=== PATIENT | female | born 1965 | race Caucasian/White ===

== ENCOUNTER 2017-09-12 03:58 | Observation (INO) | payer MEDICARE ==
[2017-09-12] MEDS ORDERED: diphenhydrAMINE 50 MG/ML VIAL ONE (04:28)
[2017-09-12] MEDS ORDERED: Ondansetron HCl/PF 4 MG/2 ML Vial ONE (04:28)
[2017-09-12 04:38] LABS: #Eosinphils 0.1 thou/uL (0.0-0.7); #Lymphocytes 2.2 thou/uL (1.20-3.40); #Monocytes 0.7 thou/uL (0.11-0.59); #Neutrophils 7.6 thou/uL (1.40-6.50); %Basophils 0.2 % (0.0-1.0); %Eosinophils 0.6 % (0.0-10.0); %Monocytes 6.3 % (0.0-10.0); Hematocrit 42.5 % (36.0-47.0); Red Blood Cell (RBC) Count 4.93 mill/uL (4.20-5.40); White Blood Cell (WBC) Count 10.6 thou/uL (4.8-10.8)
[2017-09-12 04:59] LABS: Bilirubin Negative (Negative); Blood, Urine Trace (Negative); Glucose, Urine (Dipstick) Negative (Negative); Ketone, Urine 15 mg/dL (Negative); Nitrite Negative (Negative); Protein, Urine (Dipstick) 100 mg/dL (Neg-Trace); Urobilinogen 0.2 mg/dL (0.2-1.0)
[2017-09-12 05:00] LABS: Bacteria/HPF Rare-Few HPF (None Seen); Hyaline Casts/LPF 0-3 HYALINE CAST LPF (0-3 Hyaline); WBC/HPF 0-3 HPF (0-3)
[2017-09-12 05:01] LABS: ALT (SGPT) 12 U/L (8-55); AST (SGOT) 13 U/L (5-34); Alkaline Phosphatase 139 U/L (40-150); Anion Gap 17 mmol/L (10-20); BUN (Urea Nitrogen) 6 mg/dL (9.8-20.1); Bilirubin, Total 0.4 mg/dL (0.2-1.2); Calc. Creatinine Clearance 0 mL/min (70-130); Calcium 10.2 mg/dL (7.8-10.44); Carbon Dioxide 25 mmol/L (22-29); Chloride 99 mmol/L (98-107); Estimated GFR-MDRD Greater than 90; Globulin 3.6 g/dL (2.4-3.5); Protein, Total 7.8 g/dL (6.0-8.3)
[2017-09-12 05:03] LABS: Troponin I Less than 0.010 ng/mL (< 0.028)
[2017-09-12 05:20] LABS: Amphetamine Not Detected (NotDetected); Methadone Not Detected (NotDetected); Methamphetamine Not Detected (NotDetected)
[2017-09-12] MEDS ORDERED: Lorazepam 1 MG TAB ONE (06:29)
[2017-09-12] MEDS ORDERED: Acetaminophen 325 MG TAB PO PRN (07:42)
[2017-09-12] MEDS ORDERED: Dextrose 5% in Water 1,000 ML IV PRN (07:52)
[2017-09-12] MEDS ORDERED: HumaLOG 300 UNITS/3 ML VIAL SC PRN (07:52)
[2017-09-12] MEDS ORDERED: Dextrose 50% Abboject 50 ML SYRINGE SLOW IVP PRN (07:52)
--- NOTE | 2017-09-12 07:56 | CT ---
PRELIMINARY REPORT/[facility]/EMERGENCY AFTER HOURS PROCEDURE: EXAM: CT Head Without Intravenous Contrast CLINICAL HISTORY: 52 years old, female; Signs and symptoms; Altered mental status/memory loss; Confusion or disorientat ion; Patient HX: AMS TECHNIQUE: Axial computed tomography images of the head/brain without intravenous contrast. COMPARISON: No relevant prior studies available. FINDINGS: No definite acute skull fracture. Included paranasal sinuses are essentially clear. No acute intracranial hemorrhage or mass effect. Ventricle size is normal for age. No definite acute infarct by CT. MRI could be more sensitive/specific for an acute infarct if clinically indicated. IMPRESSION: No acute intracranial bleed or mass effect. No definite acute infarct by CT, see above. Thank you for allowing us to participate in the care of your patient. Dictated and Authenticated by: Anson Chua MD 09/12/2017 6:20 AM Central Time ([place] & [place]) FINAL REPORT HEAD CT WITHOUT CONTRAST: DATE: 11/12/16. COMPARISON: 03/03/15. HISTORY: Confusion, disorientation, altered mental status, and memory loss. FINDINGS: I agree with the preliminary [facility] report. No intracranial hemorrhage, midline shift, or mass effect . No ventricular enlargement. Imaged paranasal sinuses/mastoid air cells are well aerated. No displaced calvarial fracture. No in tracranial hemorrhage, midline shift, or mass effect. IMPRESSION: Unremarkable head CT. POS: [facility]
--- NOTE | 2017-09-12 08:04 | RAD ---
PORTABLE CHEST: DATE: 09/12/17. TIME: 2:48 a.m. HISTORY: Cough. FINDINGS: Comparison is made with the exam of 11/22/15. The heart size is normal. The lungs are expanded without focal areas of consolidation, pneumothorax , or pleural effusion. IMPRESSION: No radiographic evidence of acute cardiopulmonary process. POS: [facility]
[2017-09-12] MEDS: Ondansetron ODT 4 MG TAB PO PRN ×3 (09:53→23:47)
[2017-09-12 10:02] VITALS: BMI 24.9
--- NOTE | 2017-09-12 10:22 | HP ---
PRIMARY CARE PROVIDER: Dr. Carmen Huerta, psychiatrist at [facility]. HISTORY OF PRESENT ILLNESS: The patient states she has been sick a year. She has had nausea and vom iting for months. She states she has had trouble with her thinking. She states she thinks she has l ost 30 pounds in 3 months or less. She denies blood in her stools, blood in her emesis, or abdominal pain. PAST MEDICAL HISTORY: Bipolar syndrome for 20-30 years; diabetes mellitus, type 2; hypertension; dys lipidemia; history of breast cancer post resection. PAST SURGICAL HISTORY: She states she has had a hysterectomy, lumpectomy from her breast. CURRENT MEDICATIONS: Listed for her, which she is unable to confirm all of them. Hydroxyzine 50 mg 4 times a day, clindamycin 300 mg 3 times a day, trazodone 100 mg a day, oxcarbazepine 300 mg twice a day, gabapentin 600 mg 3 times a day, Paxil 60 mg a day, benztropine 1 mg twice a day, Latuda 60 mg a day, Protonix 40 mg, metoprolol 25 mg once a day, lisinopril 10 mg a day, Plavix 75 mg a day, metfo rmin 1000 mg twice a day, Ativan 1 mg q.8 hours p.r.n. ALLERGIES: SULFA. FAMILY HISTORY: Mother is alive with COPD. Father of cancer. She does not know what kind. SOCIAL HISTORY: , smokes 1 pack a day, drinks no alcohol, states she gets mad if people ask i f she has taken meth. REVIEW OF SYSTEMS: CONSTITUTIONAL: She states she occasionally has chills and sweats, occasionally she feels unstable. Eyes: She has blurred vision at times. No double vision or flashing lights. E ars, nose, and throat: She has no ear pain or drainage, nasal bleeding, or trouble swallowing. Card iac: No chest pain, orthopnea, or paroxysmal nocturnal dyspnea. Respirations: Short of breath at t imes without any amada wheezing or cough. Gastrointestinal: See present illness. Musculoskeletal: No pain or swelling in her arms or legs. Neurological: She states she has had a stroke in the past . She states she has got the strange movements that she is unable to control better recent. Psychia tric: She states she has got some kind of psychiatric problem that nobody has diagnosed that she can not see a doctor and she only sees a nurse practitioner and she thinks the nurse practitioner is a "a n idiot." Skin: She has skin lesions on her back, which she says are bedsores. Heme/lymph: No ten rikki or swollen lymphs in axilla, inguinal, or cervical area. PHYSICAL EXAMINATION: GENERAL: She is an alert woman, sitting with chronic motions of her shoulders. She is oriented x3. She states she is sick and states she has trouble thinking at times. VITAL SIGNS: Blood pressure 138/85, pulse 86, respirations 20, temperature 98.5, room air sat 95% on room air. HEENT: Examination of her head, eyes, ears, nose, and throat reveals pupils equal, round, and reacti ve to light. Extraocular movements are intact. Sclerae white. Tympanic membranes clear. Nose brenna r. Oral mucous membranes are damp. Dental hygiene is poor. NECK: Supple, without jugular venous distention, adenopathy, or thyromegaly. CHEST: Hyperresonant without wheezes or rales. There is some mild decreased breath sounds. HEART: Regular rate and rhythm. First and second heart sounds are clear. There are no murmurs, no gallops. ABDOMEN: Soft, bowel sounds are normal. There is no hepatosplenomegaly, no mass, no rebound, no bru its. EXTREMITIES: Reveal no cyanosis, clubbing, or edema. PULSES: Carotid and radial pulses intact, femoral pulses diminished, pedal pulses markedly diminishe d. SKIN: Reveals neurotic excoriations with multiple sores on her upper back, none are grossly infected , they are all dry. HEME/LYMPH: Revealed no tender or swollen lymph nodes in axillae, inguinal, or cervical area. NEUROLOGIC: Reveals choreiform motions of her upper trunk. Deep tendon reflexes symmetric. Moves a ll extremities. Strength symmetric. X-RAY FINDINGS: Chest x-ray reveals no cardiomegaly, CHF, or infiltrate, reviewed by me. Brain CT, no acute intracranial problem. LABORATORY DATA: CBC normal. Comp metabolic profile was normal except for a potassium of 3.4, gluco se is 157, albumin is normal at 4.2, globulin is mildly high, lipase is normal Urine shows few red c ells. Toxicology reveals opiates and benzodiazepine. She prescribed any opiates. ADMITTING DIAGNOSES: 1. Bipolar syndrome with longstanding psychiatric problems, uncontrolled. 2. Choreiform motions, most likely secondary to chronic psychotropic medicines. 3. History of chronic nausea, vomiting, and weight loss without any obvious dehydration clinically, without any loss of albumin, without any laboratory evidence of dehydration. Her BUN is low at 6 and her creatinine is 0.66. 4. Diabetes mellitus, type 2. 5. Hypertension. I see no evidence for acute hospitalization in this patient. I have discussed it with the ER doctor, who has taken the place of the admitting ER doctor, who insists that he will not discharge the patie nt that she needs a neurologist. I am admitting the patient to be seen by Neurology. I see no other workup that is of any value in this patient. It is sad situation that she seems to have chronic psy chiatric problem that has not been managed to return her to functional life, which may be unfortunate ly an unreasonable goal.
[2017-09-12] MEDS: Lorazepam 1 MG TAB PO PRN ×2 (19:45→23:49)
--- NOTE | 2017-09-13 00:20 | CON ---
DATE OF CONSULTATION: 09/12/2017 REFERRING PROVIDER: Real Ness MD REASON FOR CONSULTATION: Choreiform movement. HISTORY OF PRESENT ILLNESS: Ms. Birch is a pleasant 52-year-old female who has been cons ulted for evaluation of choreiform movements. Patient is somewhat of a poor historian. She reports that she has a history of psychiatric disorder. She has been followed by [facility]. She has been prescri bed multiple different antipsychiatric medications in the past, which has caused her to have bad side effects and thus she does not take them as prescribed. She states that about a little more than a m onth ago, she started having uncontrollable movements of her body where she was not able to control h er movement of 4 arms and legs. She is also tends to walk back and forth. This has resulted in incr eased pain all over. This has gradually worsened over time. She presented today to the [facility] ER as her symptoms were becoming more and more difficult to be tolerable. She denies any headaches or vision changes, dysarthria, or dysphagia. She denies numbness, tingling, or weakness. PAST MEDICAL HISTORY: Significant for bipolar disorder, diabetes, hypertension, dyslipidemia, histor y of breast cancer. PAST SURGICAL HISTORY: Significant for hysterectomy and lumpectomy. FAMILY HISTORY: Significant for mother with a history of COPD. Father of cancer. SOCIAL HISTORY: She smokes 1 pack a day. She denies alcohol use. She denies illicit drug use. She is . CURRENT MEDICATIONS: Please review MAR. ALLERGIES: Include SULFA DRUGS. REVIEW OF SYSTEMS: As mentioned in the HPI, otherwise negative. PHYSICAL EXAMINATION: VITAL SIGNS: Blood pressure 154/83, pulse of 96, temperature of 97.6, respirations of 16, O2 sats of 97% on room air. GENERAL: A well-developed, well-nourished female, in no apparent distress. RESPIRATORY: Clear to auscultation bilaterally. CARDIOVASCULAR: Regular rate and rhythm. NEUROLOGIC: Mental status: The patient is awake, alert, oriented x3. Speech and language: Fluent speech. Cranial nerves: Pupils are 3 mm and reactive. Visual gonzalez are intact. Extraocular muscl es are intact. No nystagmus is noted. Face is symmetric. Tongue and uvula are midline. Motor exam showed normal tone and bulk with a 5/5 strength in both upper and lower extremities. She has dyskin etic movement involving her arms and legs as well as rocking back and forth movement. Sensory: Sens ation is intact and symmetric. Deep tendon reflexes 2+ reflexes in both upper and lower extremities. Babinski: Plantar responses flexion bilaterally. Coordination intact to [id number] tappin g bilaterally. LABORATORY DATA: Reviewed, which included CBC, CMP, urinalysis, and urine drug screen, which is sign ificant for potassium of 3.4, glucose of 196. Urine drug screen positive for opioids and benzodiazep virgilio. IMAGING STUDY: CT of head without contrast was reviewed, which showed no acute intracranial abnormal ity. IMPRESSION: 1. 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 2. Bipolar disorder. Ms. Birch is a pleasant 52-year-old female who presented with 1-month history of severely dyskinetic movement, has gradually gotten worse over time. This is likely secondary to her underlyi ng anti-psychotropic medications on one of the medications listed on her home medications. She is on Latuda, which can cause dyskinetic movement disorder. At this time, I would recommend holding her L atuda, starting her on Ativan 1 mg p.o. q.4 hours p.r.n. Cogentin can be increased to 1.5 mg twice d aily. I would like to have MRI brain done, however, it is very likely that she may not be able to ho ld still for the MRI to be done. She can be followed up as an outpatient to her psychiatrist who can adjust her anti-psychotropic medications.
[2017-09-13] MEDS: Lorazepam 1 MG TAB PO PRN ×3 (05:25→13:18)
[2017-09-13 08:09] VITALS: TEMP 98.3
[2017-09-13] MEDS: Ondansetron ODT 4 MG TAB PO PRN (09:40)
[2017-09-13 11:35] VITALS: BP 146/79
--- NOTE | 2017-09-13 12:39 | DIS ---
TRANSFER OF CARE NOTE PRIMARY CARE PROVIDER: Dr. Carmen Huerta DATE OF ADMISSION: 09/12/2017 DATE OF DISCHARGE: 09/13/2017 DISCHARGE DISPOSITION: Discharged home. FINAL DIAGNOSES: 1. Choreiform movements secondary to antipsychotic medications. 2. Bipolar type 2 disorder. 3. Diabetes mellitus type 2. 4. Peripheral vascular disease. DISCHARGE MEDICATIONS: Discharge medications are the same as her home medications, insulin Levemir 1 0 units subq at bedtime, hydrocodone 10/325 one twice a day for pain, Neurontin 100 mg twice a day, a mlodipine 5 mg a day, Lasix 20 mg a day, Lipitor 10 mg a day, aspirin 81 mg a day, metformin 1000 mg twice a day, lorazepam 1 mg t.i.d. p.r.n., Plavix 75 mg a day, Protonix 40 mg a day, metoprolol 25 mg a day, Lisinopril 10 mg a day, Latuda 60 mg a day, Cogentin 1 mg twice a day, Paxil 60 mg a day, Tri leptal 300 mg twice a day, trazodone 100 mg at bedtime, hydroxyzine 50 mg p.o. q.i.d. ALLERGIES: SULFA. CODE STATUS: Full. PENDING AT THE TIME OF DISCHARGE: HOSPITAL COURSE: The patient referred from the Emergency Department to [facility] wi th choreiform motions. I discussed the fact that this was an outpatient workup with the emergency ro doctor. He was resistant. She was placed in the hospital. Neurological consultation with Dr. Luis Post agreed with me. MRI follow up showed no acute intracranial abnormality. Brain CT showed no acute intracranial abnormality. Her CBC was normal. Chemistries normal except for potassium 3.4. Albumin was 4.2. Toxicology revealed opiates and benzodiazepine. It is pertinent that she does not list any opiates in her medications. These studies were discussed with the patient. She stated "I a m going to david the psychiatrist for burning my brain out". She is being discharged home. She has be en told she needs follow up with her PCP in 1 week. Follow up with MR in 1 week.
--- NOTE | 2017-09-13 13:13 | MRI ---
BRAIN MRI WITHOUT CONTRAST: Date: 09-13-17 Comparison: 05-25-13 History: Dyskinetic movements. Technique: Multiplanar, multisequence MR imaging of the brain is provided without contrast. FINDINGS: The provided pulse sequences are degraded on the basis of persistent patient motion artifact. The diffusion weighted imaging demonstrates no evidence for acute infarction. Axial gradient echo imaging demonstrates no evidence for intracranial hemorrhage. Arterial flow voids at axial level of the skull base are grossly unremarkable on the T2 weighted imag ing. No significant paranasal sinus or mastoid air cell opacification. There is stable prominence of the pituitary gland in the craniocaudal dimension. There is a stable focus of increased T2 signal in the caudate head on the right suggesting an area of prior insult, unchanged when compared to the 2013 exam. IMPRESSION: Motion limited examination demonstrating no acute findings or significant interval change when compar ed to the 2013 brain MRI. POS: [facility]
== END 2017-09-13 13:43 | disposition home or self-care (01) ==
LOC: ERS 03:58 → T4-B 06:36
PROVIDERS: ADMIT Internal Medicine; ATTEND Internal Medicine
DX: F31.81 Bipolar II disorder (principal); G25.5 Other chorea; E11.51 Type 2 diabetes mellitus with diabetic peripheral angiopathy without gangrene; F17.210 Nicotine dependence, cigarettes, uncomplicated; I10 Essential (primary) hypertension; E78.5 Hyperlipidemia, unspecified; Z88.2 Allergy status to sulfonamides; Z79.84 Long term (current) use of oral hypoglycemic drugs; Z79.899 Other long term (current) drug therapy; Z90.710 Acquired absence of both cervix and uterus; Z98.890 Other specified postprocedural states; Z85.3 Personal history of malignant neoplasm of breast
CPT/HCPCS: 70450; 70551; 71010; 80053; 80306; 82553; 82947 ×3; 82962 ×2; 83690; 84484; 84703; 85025; 93005; 96361; 96374; 96375; 99285; G0378 ×2; 36415; 36416; 81003; 81015; J1200; J2405; Q0162

== ENCOUNTER 2017-10-09 06:11 | Emergency (ER) | payer MEDICARE ==
[2017-10-09] MEDS ORDERED: Famotidine 20 MG TAB ONE (06:46)
[2017-10-09] MEDS ORDERED: Aspirin 325 MG TAB ONE (06:46)
[2017-10-09] MEDS ORDERED: diphenhydrAMINE 25 MG CAP ONE (06:46)
[2017-10-09 06:48] LABS: #Basophils 0.1 thou/uL (0.0-0.2); #Eosinphils 0.2 thou/uL (0.0-0.7); #Lymphocytes 1.9 thou/uL (1.20-3.40); #Monocytes 1.3 thou/uL (0.11-0.59); #Neutrophils 8.2 thou/uL (1.40-6.50); %Basophils 0.4 % (0.0-1.0); %Eosinophils 1.4 % (0.0-10.0); %Lymphocytes 16.4 % (21.0-51.0); %Monocytes 10.9 % (0.0-10.0); Hematocrit 39.7 % (36.0-47.0); Mean Platelet Volume 8.5 fL (7.4-10.4); Red Blood Cell (RBC) Count 4.49 mill/uL (4.20-5.40); White Blood Cell (WBC) Count 11.5 thou/uL (4.8-10.8)
[2017-10-09 07:18] LABS: Troponin I Less than 0.010 ng/mL (< 0.028)
--- NOTE | 2017-10-09 07:49 | RAD ---
CHEST ONE VIEW: Indication: Chest pain. IMPRESSION: No acute cardiopulmonary abnormality. The examination is not appreciably changed from the comparison from 09-12-17. POS: [facility]
[2017-10-09 08:01] LABS: Chloride 101 mmol/L (98-107)
[2017-10-09 08:02] LABS: Globulin 3.4 g/dL (2.4-3.5); Protein, Total 7.3 g/dL (6.0-8.3)
[2017-10-09 08:03] LABS: Anion Gap 12 mmol/L (10-20); Carbon Dioxide 29 mmol/L (22-29)
[2017-10-09 08:04] LABS: Bilirubin, Total 0.3 mg/dL (0.2-1.2)
[2017-10-09 08:05] LABS: Alkaline Phosphatase 145 U/L (40-150); Calc. Creatinine Clearance 0 mL/min (70-130); Estimated GFR-MDRD Greater than 90
[2017-10-09 08:06] LABS: BUN (Urea Nitrogen) 10 mg/dL (9.8-20.1)
[2017-10-09 08:07] LABS: AST (SGOT) 12 U/L (5-34)
[2017-10-09 08:08] LABS: ALT (SGPT) 13 U/L (8-55)
== END 2017-10-09 09:50 | disposition home or self-care (01) ==
LOC: ERS 06:11
DX: R07.9 Chest pain, unspecified (principal); R21 Rash and other nonspecific skin eruption; E78.5 Hyperlipidemia, unspecified; E11.9 Type 2 diabetes mellitus without complications; F41.9 Anxiety disorder, unspecified; F31.9 Bipolar disorder, unspecified; F17.210 Nicotine dependence, cigarettes, uncomplicated; K21.9 Gastro-esophageal reflux disease without esophagitis; I10 Essential (primary) hypertension; G51.0 Bell's palsy; M81.0 Age-related osteoporosis without current pathological fracture; Z86.73 Personal history of transient ischemic attack (TIA), and cerebral infarction without residual deficits; Z85.3 Personal history of malignant neoplasm of breast
CPT/HCPCS: 36415; 71010; 80053; 82553; 84484; 85025; 93005; 99406

== ENCOUNTER 2017-12-13 13:19 | Outpatient (CLI) | payer MEDICARE ==
--- NOTE | 2017-12-13 13:46 | RAD ---
LEFT WRIST 3 VIEWS: HISTORY: Left wrist pain. COMPARISON: 02/21/10. FINDINGS: Scaphoid waist is intact. Ulna negative variant is noted. Mild osteophytosis is present at the dist al carpal row. No acute fracture, dislocation, or aggressive osseous erosions. IMPRESSION: Mild osteoarthritic changes. No acute osseous abnormalities are demonstrated. POS: [facility]
--- NOTE | 2017-12-13 13:48 | RAD ---
LEFT HAND THREE VIEWS: HISTORY: Left hand pain. COMPARISON: None. FINDINGS: Ulnar negative variance is noted. Joint spaces are preserved. No acute fracture, dislocation, or ag gressive osseous erosions are apparent. IMPRESSION: No acute osseous abnormalities are demonstrated. POS: [facility]
== END 2017-12-13 13:20 | disposition home or self-care (01) ==
LOC: RAD 13:19
PROVIDERS: ATTEND Family Medicine
DX: M79.642 Pain in left hand (principal); M25.532 Pain in left wrist

== ENCOUNTER 2018-01-11 13:38 | Outpatient (CLI) | payer MEDICARE | END 2018-01-11 13:39 | disposition home or self-care (01) | LOC: BICMAMMO 13:38 | PROVIDERS: ATTEND Family Medicine | DX: Z13.820 Encounter for screening for osteoporosis (principal) | CPT/HCPCS: 77080 ==

== ENCOUNTER 2018-03-01 10:09 | Outpatient (CLI) | payer MEDICARE, MEDICAID ==
[2018-03-01 11:43] LABS: #Basophils 0.1 thou/uL (0.0-0.2); #Eosinphils 0.1 thou/uL (0.0-0.7); #Lymphocytes 2.4 thou/uL (1.20-3.40); #Monocytes 0.8 thou/uL (0.11-0.59); #Neutrophils 9.2 thou/uL (1.40-6.50); %Basophils 0.4 % (0.0-1.0); %Eosinophils 0.8 % (0.0-10.0); %Lymphocytes 18.9 % (21.0-51.0); %Monocytes 6.2 % (0.0-10.0); %Neutrophils 73.6 % (42.0-75.0); Hemoglobin 17.1 g/dL (12.0-16.0); Mean Corpuscular HGB CONC 34.6 g/dL (32.0-36.0); Mean Corpuscular Hemoglobin 30.9 pg (27.0-31.0); Mean Corpuscular Volume 89.2 fl (81.0-99.0); Mean Platelet Volume 7.9 fL (7.4-10.4); Platelet Count 215 thou/uL (130-400); RBC Distribution Width 13.2 % (11.5-14.5); Red Blood Cell (RBC) Count 5.53 mill/uL (4.20-5.40); White Blood Cell (WBC) Count 12.5 thou/uL (4.8-10.8)
== END 2018-03-01 10:10 | disposition home or self-care (01) ==
LOC: LABBT 10:09
PROVIDERS: ATTEND Orthopaedic Surgery Hand Surgery
DX: Z01.812 Encounter for preprocedural laboratory examination (principal); G56.03 Carpal tunnel syndrome, bilateral upper limbs; M65.4 Radial styloid tenosynovitis [de Quervain]
CPT/HCPCS: 85025

== ENCOUNTER 2018-03-05 07:07 | Day surgery (SDC) | payer MEDICARE, MEDICAID ==
[2018-03-01 10:53] VITALS: BMI 29.0
[2018-03-05] MEDS ORDERED: CEFAZOLIN/Water 2 GM/20 ML SYRINGE ONE (07:48)
[2018-03-05] MEDS ORDERED: Bacitracin Zinc Ointment 30 gm TUBE ONE (10:37)
[2018-03-05] MEDS ORDERED: Sodium Chloride 0.9% 10 ML ONE (10:37)
[2018-03-05] MEDS ORDERED: Betamet Acet/Betamet Na Ph 30 MG/5 ML VIAL ONE (10:37)
[2018-03-05] MEDS ORDERED: Bupivacaine PF 0.5% 30 ML VIAL ONE (10:37)
[2018-03-05] MEDS ORDERED: Midazolam HCl 2 mg/2 ml Vial ONE (10:44)
[2018-03-05] MEDS ORDERED: Ondansetron HCl/PF 4 MG/2 ML Vial ONE (11:00)
[2018-03-05] MEDS ORDERED: Metoclopramide HCl 10 MG/2 ML VIAL ONE (11:00)
[2018-03-05] MEDS ORDERED: Fentanyl 100 MCG/2 ML VIAL ONE ×2 (11:00→12:37)
[2018-03-05] MEDS ORDERED: Ketorolac Tromethamine 30 MG/ML VIAL ONE (12:10)
[2018-03-05] MEDS ORDERED: HYDROcodone/Acetaminophen 5/325 mg Tablet ONE (13:31)
--- NOTE | 2018-03-05 19:35 | OP ---
DATE OF SURGERY: 03/05/2018 SURGEON: Dimitri Rodriguez M.D. ANESTHESIA: KORIN Lai from [facility]. COMPLICATIONS: None. TOURNIQUET TIME: Total 10 minutes. ESTIMATED BLOOD LOSS: Less than 10 mL. PROCEDURES PERFORMED: 1. Left de Quervain's/first dorsal compartment release with tenosynovectomy extensor. 2. Left carpal tunnel release. PREOPERATIVE DIAGNOSES: 1. De Quervain's first dorsal compartment tenosynovitis. 2. Carpal tunnel syndrome. POSTOPERATIVE DIAGNOSES: 1. De Quervain's first dorsal compartment tenosynovitis. 2. Carpal tunnel syndrome. SPECIMEN: None. DESCRIPTION OF PROCEDURE: After successful general LMA technique, limb was prepped and draped and 10 mL of 0.5% Marcaine was injected around the 2 surgical sites after a timeout was done appropriately. A zigzag incision outlined over the first dorsal compartment tendon on the radial styloid and then the 2.5 cm incision to the limb was outlined in line with the ring finger and as far distal as Stoddard 's cardinal line cardinal line as far proximal as 5 mm distal to the volar wrist flexion crease. After exsanguination and injection of Marcaine, we first began with the styloid incision carried thro [facility] skin, subcutaneous tissue, identified all branches of superficial radial nerve protected them on both sides of the first dorsal compartment. We then ended the first dorsal compartment midway betwee n the volar and dorsal edges with a Morongo blade, care to skin and subcutaneous tissue. There were t wo branches of the abductor pollicis longus and extensor pollicis brevis and a separate compartment w hich was released under direct visualization with a Morongo blade. We then released the tenosynovial covering proximal and distal to the retinaculum without complication. Placed 2 mL of Celestone over this wound. the carpal tunnel incision. The incision already outlined was entered through skin, subcutaneous tissue, and sharp dissection wit h a tenotomy scissor revealed the transverse carpal ligament. At the point where the palmaris longus crossed over. It immediately ulnar to this, we then entered the transverse carpal ligament. A Morongo blade beginning in the mid portion distally and then from the mid portion proximally using a combination of Morongo blade tenotomy scissors. Carpal tunnel was completely released. The motor br anch was visualized and did not have separate compression and was not injured. The patient had a typ e 1 motor branch takeoff. The tourniquet deflated. Hemostasis obtained. The remaining portion of Celestone placed over the me chavo nerve in the wrist. Once hemostasis was completely, closed each wound with interrupted 4-0 nylo n in a mattress pattern and bulky dressing was applied. The remaining more mL divided equally betwee n two incisions, 0.5% Marcaine without epinephrine. The patient left the operating room without evid ence of anesthetic or operative complications.
== END 2018-03-05 14:10 | disposition home or self-care (01) ==
LOC: SDC 07:07
PROVIDERS: ATTEND Orthopaedic Surgery Hand Surgery
PROC: 01N50ZZ Release Median Nerve, Open Approach (ICD-10-PCS; principal; 2018-03-05)
PROC: 0LN60ZZ Release Left Lower Arm and Wrist Tendon, Open Approach (ICD-10-PCS; 2018-03-05)
DX: G56.03 Carpal tunnel syndrome, bilateral upper limbs (principal); M65.4 Radial styloid tenosynovitis [de Quervain]; F32.9 Major depressive disorder, single episode, unspecified; E11.9 Type 2 diabetes mellitus without complications; I10 Essential (primary) hypertension; M81.0 Age-related osteoporosis without current pathological fracture; E78.5 Hyperlipidemia, unspecified; F17.210 Nicotine dependence, cigarettes, uncomplicated; Z88.2 Allergy status to sulfonamides; Z91.040 Latex allergy status; Z79.84 Long term (current) use of oral hypoglycemic drugs; Z79.899 Other long term (current) drug therapy; Z98.890 Other specified postprocedural states
CPT/HCPCS: 96372; A4216; J0131; J0702; J1885; J2250; J2405; J2765; J3010; J3490; S0020

== ENCOUNTER 2018-03-10 20:06 | Emergency (ER) | payer MEDICARE ==
[2018-03-10 21:13] LABS: #Eosinphils 0.2 thou/uL (0.0-0.7); #Lymphocytes 3.4 thou/uL (1.20-3.40); #Monocytes 0.9 thou/uL (0.11-0.59); #Neutrophils 8.8 thou/uL (1.40-6.50); %Basophils 0.3 % (0.0-1.0); %Eosinophils 1.6 % (0.0-10.0); %Lymphocytes 25.1 % (21.0-51.0); %Monocytes 6.8 % (0.0-10.0); %Neutrophils 66.1 % (42.0-75.0); Hemoglobin 15.7 g/dL (12.0-16.0); Mean Corpuscular HGB CONC 35.6 g/dL (32.0-36.0); Mean Corpuscular Hemoglobin 31.9 pg (27.0-31.0); Mean Corpuscular Volume 89.5 fl (81.0-99.0); Mean Platelet Volume 7.5 fL (7.4-10.4); Platelet Count 234 thou/uL (130-400); RBC Distribution Width 13.5 % (11.5-14.5); Red Blood Cell (RBC) Count 4.94 mill/uL (4.20-5.40); White Blood Cell (WBC) Count 13.3 thou/uL (4.8-10.8)
[2018-03-10 21:33] LABS: ALT (SGPT) 16 U/L (8-55); AST (SGOT) 12 U/L (5-34); Albumin 4.1 g/dL (3.5-5.0); Alkaline Phosphatase 93 U/L (40-150); Anion Gap 12 mmol/L (10-20); BUN (Urea Nitrogen) 19 mg/dL (9.8-20.1); Bilirubin, Total 0.4 mg/dL (0.2-1.2); Calc. Creatinine Clearance 0 mL/min (70-130); Calcium 9.9 mg/dL (7.8-10.44); Carbon Dioxide 27 mmol/L (22-29); Chloride 102 mmol/L (98-107); Estimated GFR-MDRD Greater than 90; Globulin 2.7 g/dL (2.4-3.5); Glucose 115 mg/dL (70-105); Potassium 4.4 mmol/L (3.5-5.1); Protein, Total 6.8 g/dL (6.0-8.3); Sodium 137 mmol/L (136-145)
== END 2018-03-10 23:26 | disposition left against medical advice (07) ==
LOC: ERS 20:06
DX: Z53.21 Procedure and treatment not carried out due to patient leaving prior to being seen by health care provider (principal)
CPT/HCPCS: 36415; 80053; 85025

== ENCOUNTER 2018-03-11 11:47 | Emergency (ER) | payer MEDICARE, MEDICAID | END 2018-03-11 12:35 | disposition home or self-care (01) | LOC: SCSER 11:47 | DX: G89.18 Other acute postprocedural pain (principal); M25.532 Pain in left wrist; K21.9 Gastro-esophageal reflux disease without esophagitis; M81.0 Age-related osteoporosis without current pathological fracture; E78.5 Hyperlipidemia, unspecified; E11.9 Type 2 diabetes mellitus without complications; I10 Essential (primary) hypertension; G51.0 Bell's palsy; Z86.73 Personal history of transient ischemic attack (TIA), and cerebral infarction without residual deficits; G24.01 Drug induced subacute dyskinesia; F41.9 Anxiety disorder, unspecified; F31.9 Bipolar disorder, unspecified; Z71.6 Tobacco abuse counseling; F17.210 Nicotine dependence, cigarettes, uncomplicated; Z79.4 Long term (current) use of insulin; Z79.899 Other long term (current) drug therapy; Z85.3 Personal history of malignant neoplasm of breast | CPT/HCPCS: 99406 ==

== ENCOUNTER 2018-03-20 09:30 | Emergency (ER) | payer MEDICARE, MEDICAID ==
--- NOTE | 2018-03-20 12:28 | ULT ---
RIGHT UPPER EXTREMITY VENOUS DOPPLER ULTRASOUND: Date: 03-20-18 Comparison: None. History: Right arm redness, edema, and pain. Assess for DVT. Technique: Multiplanar grayscale sonographic imaging of the venous structures of the right upper extr emity obtained with color flow and spectral analysis. FINDINGS: Right internal jugular vein, subclavian vein, axillary vein, basilic vein, radial vein, ulnar vein, a nd brachial vein are patent. There is normal blood flow, augmentation, and compression within the kacey p venous system on the right with no evidence for right upper extremity DVT. Of note, there is a long segment of the cephalic vein on the right which is expanded and filled with clot. This involves the cephalic vein from the level of the shoulder through the antecubital fossa with no definite extension into the axillary vein at this time. If symptoms worsen, follow up imaging is advised. IMPRESSION: Fairly long segment area of superficial thrombosis of the right cephalic vein with no evidence of ext ension into the deep venous system at this point. Follow up imaging is advised as clinically warrante d. POS: [facility]
== END 2018-03-20 12:46 | disposition home or self-care (01) ==
LOC: ERS 09:30
DX: I82.611 Acute embolism and thrombosis of superficial veins of right upper extremity (principal); K21.9 Gastro-esophageal reflux disease without esophagitis; E78.5 Hyperlipidemia, unspecified; E11.9 Type 2 diabetes mellitus without complications; F31.9 Bipolar disorder, unspecified; F41.9 Anxiety disorder, unspecified; F17.210 Nicotine dependence, cigarettes, uncomplicated; I10 Essential (primary) hypertension; G51.0 Bell's palsy; G24.01 Drug induced subacute dyskinesia; M19.90 Unspecified osteoarthritis, unspecified site; Z79.4 Long term (current) use of insulin; Z86.73 Personal history of transient ischemic attack (TIA), and cerebral infarction without residual deficits; Z79.899 Other long term (current) drug therapy; Z71.6 Tobacco abuse counseling
CPT/HCPCS: 99406

== ENCOUNTER 2018-03-23 09:19 | Emergency (ER) | payer MEDICARE, MEDICAID ==
[2018-03-23 09:56] LABS: #Eosinphils 0.1 thou/uL (0.0-0.7); #Lymphocytes 1.9 thou/uL (1.20-3.40); #Monocytes 0.6 thou/uL (0.11-0.59); #Neutrophils 6.7 thou/uL (1.40-6.50); %Basophils 0.3 % (0.0-1.0); %Eosinophils 1.6 % (0.0-10.0); %Monocytes 6.3 % (0.0-10.0); %Neutrophils 71.8 % (42.0-75.0); Hemoglobin 14.2 g/dL (12.0-16.0); Mean Corpuscular HGB CONC 34.2 g/dL (32.0-36.0); Mean Corpuscular Hemoglobin 30.8 pg (27.0-31.0); Mean Corpuscular Volume 90.3 fl (81.0-99.0); Mean Platelet Volume 7.2 fL (7.4-10.4); Platelet Count 207 thou/uL (130-400); RBC Distribution Width 14.3 % (11.5-14.5); White Blood Cell (WBC) Count 9.3 thou/uL (4.8-10.8)
[2018-03-23 10:23] LABS: CKMB 1.2 ng/mL (0-6.6); Troponin I Less than 0.010 ng/mL (< 0.028)
[2018-03-23 10:24] LABS: ALT (SGPT) 33 U/L (8-55); AST (SGOT) 20 U/L (5-34); Albumin 3.8 g/dL (3.5-5.0); Alkaline Phosphatase 183 U/L (40-150); Anion Gap 12 mmol/L (10-20); BUN (Urea Nitrogen) 13 mg/dL (9.8-20.1); Bilirubin, Total 0.4 mg/dL (0.2-1.2); Calc. Creatinine Clearance 0 mL/min (70-130); Calcium 9.9 mg/dL (7.8-10.44); Carbon Dioxide 26 mmol/L (22-29); Chloride 103 mmol/L (98-107); Estimated GFR-MDRD Greater than 90; Globulin 3.1 g/dL (2.4-3.5); Glucose 134 mg/dL (70-105); Protein, Total 6.9 g/dL (6.0-8.3); Sodium 137 mmol/L (136-145)
--- NOTE | 2018-03-23 11:19 | ULT ---
LEFT UPPER EXTREMITY VENOUS DOPPLER ULTRASOUND: DATE: 03/23/18. HISTORY: Edema, pain, and swelling, assess for DVT. TECHNIQUE: Multiplanar, irvera scale sonographic imaging of the venous structures of the left upper extremity obta ined with color flow and spectral analysis. FINDINGS: The left internal jugular vein, subclavian vein, and axillary veins are patent. There is a focal are a of superficial thrombosis involving the left basilic vein in the medial aspect of the left antecubi adonay fossa and slightly distal to the antecubital fossa. Left brachial vein is patent as is the left cephalic vein. Left radial and left ulnar vein are patent. IMPRESSION: Focal area of superficial thrombosis of the basilic vein in the left antecubital fossa region. No ev idence for deep venous thrombosis of the left upper extremity. POS: [facility]
--- NOTE | 2018-03-23 11:32 | RAD ---
PORTABLE UPRIGHT FRONTAL CHEST RADIOGRAPH: RIVAS: 03/23/18. COMPARISON: 10/09/17. HISTORY: Left arm pain. Blood clot. FINDINGS: No pneumothorax, pleural fluid, focal consolidation, or alveolar edema. Heart and mediastinal contou rs are unremarkable. IMPRESSION: No acute findings. POS: [facility]
== END 2018-03-23 11:21 | disposition home or self-care (01) ==
LOC: ERS 09:19
DX: I82.612 Acute embolism and thrombosis of superficial veins of left upper extremity (principal); R06.00 Dyspnea, unspecified; K21.9 Gastro-esophageal reflux disease without esophagitis; M81.0 Age-related osteoporosis without current pathological fracture; E78.5 Hyperlipidemia, unspecified; E11.9 Type 2 diabetes mellitus without complications; I10 Essential (primary) hypertension; G51.0 Bell's palsy; Z86.73 Personal history of transient ischemic attack (TIA), and cerebral infarction without residual deficits; F17.210 Nicotine dependence, cigarettes, uncomplicated
CPT/HCPCS: 36415; 71045; 80053; 82553; 83880; 84484; 85025; 93005

== ENCOUNTER 2018-03-25 06:30 | Emergency (ER) | payer MEDICARE, MEDICAID ==
[2018-03-25 07:37] LABS: CKMB 1.2 ng/mL (0-6.6); Troponin I Less than 0.010 ng/mL (< 0.028)
--- NOTE | 2018-03-25 09:34 | CT ---
CT ANGIOGRAM OF THE CHEST: History: Chest pain, difficulty breathing. Comparison: None. Technique: CT angiogram of the chest performed in the axial plane. 3D reformatted images are submitte d for interpretation. FINDINGS: No mass, lymphadenopathy or hematoma. Nonspecific prevascular and paratracheal lymph nodes are noted. There is nonspecific subcarinal fullness, measuring 2.5 x 1.1 cm. No evidence of hilar or lymphadeno gumaro. Heart size is normal. No pericardial effusion. Coronary calcifications are identified. The vis ualized aorta has the overall normal caliber. No periaortic fat stranding. Visualized upper solid org ans are unremarkable. There are dependent atelectatic changes. No suspicious masses or consolidation. Small bleb in the mid dle lobe. Patchy ground glass opacities, predominately in the lower lobes. Mild emphysematous changes in the left upper lobe. No pneumothorax or pleural effusion. Trachea and central bronchi are patent. Adequate contrast opacification of the pulmonary arterial system to the level of the segmental arteri es. No filling defect to suggest thromboembolism. No lytic or blastic lesions of the osseous structures. IMPRESSION: No evidence of pulmonary embolism below the segmental arteries. Mild emphysematous changes throughout the lung parenchyma. POS: [facility]
[2018-03-25] MEDS ORDERED: ISOVUE-370 76%-LOCM 1 ML ONE (10:38)
== END 2018-03-25 08:31 | disposition home or self-care (01) ==
LOC: ERS 06:30
DX: R07.81 Pleurodynia (principal); K21.9 Gastro-esophageal reflux disease without esophagitis; M81.0 Age-related osteoporosis without current pathological fracture; E78.5 Hyperlipidemia, unspecified; E11.9 Type 2 diabetes mellitus without complications; I10 Essential (primary) hypertension; F41.9 Anxiety disorder, unspecified; F31.9 Bipolar disorder, unspecified; F17.210 Nicotine dependence, cigarettes, uncomplicated; Z86.73 Personal history of transient ischemic attack (TIA), and cerebral infarction without residual deficits; Z85.3 Personal history of malignant neoplasm of breast; Z79.4 Long term (current) use of insulin; Z79.899 Other long term (current) drug therapy; Z79.82 Long term (current) use of aspirin; Z79.02 Long term (current) use of antithrombotics/antiplatelets
CPT/HCPCS: 36415; 71275; 82553; 84484; 93005

== ENCOUNTER 2018-04-10 10:47 | Emergency (ER) | payer MEDICARE, MEDICAID ==
[2018-04-10 11:06] LABS: Bilirubin Negative (Negative); Blood, Urine Small (Negative); Glucose, Urine (Dipstick) Negative (Negative); Leukocyte Moderate (Negative); Nitrite Negative (Negative); Protein, Urine (Dipstick) 100 mg/dL (Neg-Trace); Urobilinogen 0.2 mg/dL (0.2-1.0)
[2018-04-10 11:07] LABS: Clarity Slightly Cloudy (Clear)
[2018-04-10 11:13] LABS: Bacteria/HPF 3+ HPF (None Seen); RBC/HPF 0-3 HPF (0-3); Squamous Epithelial 0-3 HPF (0-3); WBC/HPF 21-50 HPF (0-3)
== END 2018-04-10 11:25 | disposition home or self-care (01) ==
LOC: SCSER 10:47
DX: N39.0 Urinary tract infection, site not specified (principal); F17.210 Nicotine dependence, cigarettes, uncomplicated; F41.9 Anxiety disorder, unspecified; F31.9 Bipolar disorder, unspecified; K21.9 Gastro-esophageal reflux disease without esophagitis; M81.0 Age-related osteoporosis without current pathological fracture; E11.9 Type 2 diabetes mellitus without complications; I10 Essential (primary) hypertension
CPT/HCPCS: 81003; 81015; 87077; 87086; 87186; 99283

== ENCOUNTER 2018-05-17 13:31 | Emergency (ER) | payer MEDICARE, MEDICAID ==
[2018-05-17] MEDS ORDERED: Morphine 4 MG/ML VIAL ONE (14:45)
--- NOTE | 2018-05-17 16:50 | ULT ---
DOPPLER ARTERIAL EVALUATION OF THE RIGHT INGUINAL REGION 05/17/18 INDICATION: Inguinal pain after angiogram. TECHNIQUE: Holbrook scale, color doppler with spectral doppler images were obtained of the venous and arterial struc tures of the right inguinal region. FINDINGS: There is normal flow seen within the right common femoral artery and right common femoral vein. No la rge hematoma is demonstrated. Mildly prominent lymph node is seen within the right inguinal region me asuring up to 1.7 cm. IMPRESSION: No evidence of pseudoaneurysm or large right inguinal hematoma. Mildly prominent lymph node in the ri ght inguinal region may be reactive. Recommend clinical followup. POS: [facility]
[2018-05-17 18:15] LABS: Bilirubin Small (Negative); Blood, Urine Negative (Negative); Clarity CLEAR (Clear); Glucose, Urine (Dipstick) Negative (Negative); Leukocyte Small (Negative); Nitrite Negative (Negative); Protein, Urine (Dipstick) 100 mg/dL (Neg-Trace); Specific Gravity, Urine 1.028 (1.002-1.036); pH, Urine 5.5 (5.0-9.0)
[2018-05-17 18:18] LABS: Bacteria/HPF None Seen HPF (None Seen); Hyaline Casts/LPF 0-3 HYALINE CAST LPF (0-3 Hyaline); Pathc Cast-AUWi Flag 0.58 (0-2.49)
== END 2018-05-17 17:59 | disposition home or self-care (01) ==
LOC: ERS 13:31
DX: G89.18 Other acute postprocedural pain (principal); R10.30 Lower abdominal pain, unspecified; K21.9 Gastro-esophageal reflux disease without esophagitis; E78.5 Hyperlipidemia, unspecified; E11.9 Type 2 diabetes mellitus without complications; I10 Essential (primary) hypertension; F17.210 Nicotine dependence, cigarettes, uncomplicated; Z86.73 Personal history of transient ischemic attack (TIA), and cerebral infarction without residual deficits; Z71.6 Tobacco abuse counseling; Z79.899 Other long term (current) drug therapy; Z79.82 Long term (current) use of aspirin; Z79.4 Long term (current) use of insulin
CPT/HCPCS: 81003; 81015; 87086; 93926; 96372; J2270

== ENCOUNTER 2018-05-19 21:31 | Emergency (ER) | payer MEDICARE, MEDICAID | END 2018-05-19 21:47 | disposition left against medical advice (07) | LOC: ERS 21:31 | DX: Z53.21 Procedure and treatment not carried out due to patient leaving prior to being seen by health care provider (principal) ==

== ENCOUNTER 2018-05-19 22:12 | Emergency (ER) | payer MEDICARE, MEDICAID ==
[2018-05-19] MEDS ORDERED: Ketorolac Tromethamine 60 MG/2 ML VIAL ONE (22:43)
[2018-05-19 22:52] LABS: Bilirubin Small (Negative); Blood, Urine Trace (Negative); Clarity Slightly Cloudy (Clear); Glucose, Urine (Dipstick) Negative (Negative); Leukocyte Negative (Negative); Nitrite Negative (Negative); Protein, Urine (Dipstick) > or equal to 300 mg/dL (Neg-Trace); Specific Gravity, Urine 1.031 (1.002-1.036); Urobilinogen 0.2 mg/dL (0.2-1.0); pH, Urine 5.5 (5.0-9.0)
[2018-05-19 23:01] LABS: Bacteria/HPF None Seen HPF (None Seen); Hyaline Casts/LPF NONE SEEN LPF (0-3 Hyaline); RBC/HPF 0-3 HPF (0-3); Squamous Epithelial 0-3 HPF (0-3); WBC/HPF 0-3 HPF (0-3)
--- NOTE | 2018-05-20 00:11 | ULT ---
SOFT TISSUE ULTRASOUND RIGHT GROIN: Indication: Evaluation was requested to assess for pseudoaneurysm. FINDINGS/IMPRESSION: The common femoral artery and femoral vein appear unremarkable. No evidence of pseudoaneurysm. There are large inguinal lymph nodes noted. POS: [facility]
== END 2018-05-20 | disposition home or self-care (01) ==
LOC: SCSER 22:12
DX: M79.81 Nontraumatic hematoma of soft tissue (principal); K21.9 Gastro-esophageal reflux disease without esophagitis; E78.5 Hyperlipidemia, unspecified; E11.9 Type 2 diabetes mellitus without complications; F17.210 Nicotine dependence, cigarettes, uncomplicated; I10 Essential (primary) hypertension; Z86.73 Personal history of transient ischemic attack (TIA), and cerebral infarction without residual deficits; Z79.899 Other long term (current) drug therapy; Z79.84 Long term (current) use of oral hypoglycemic drugs; Z79.891 Long term (current) use of opiate analgesic
CPT/HCPCS: 76936; 81003; 81015; 96372; J1885

== ENCOUNTER 2018-07-09 13:47 | Outpatient (CLI) | payer MEDICARE, MEDICAID | END 2018-07-09 13:48 | disposition home or self-care (01) | LOC: BICMRI 13:47 | PROVIDERS: ATTEND Specialist | DX: M47.22 Other spondylosis with radiculopathy, cervical region (principal); M48.8X2 Other specified spondylopathies, cervical region | CPT/HCPCS: 72141; 72146 ==

== ENCOUNTER 2018-07-14 15:11 | Emergency (ER) | payer MEDICARE, OTHER ==
[2018-07-14] MEDS ORDERED: Ketorolac Tromethamine 60 MG/2 ML VIAL ONE (16:05)
[2018-07-14] MEDS ORDERED: HYDROcodone/Acetaminophen 10/325 mg Tablet ONE (16:05)
[2018-07-14] MEDS ORDERED: Dexamethasone 4 MG TAB ONE (16:05)
== END 2018-07-14 16:43 | disposition home or self-care (01) ==
LOC: ERS 15:11
DX: M54.6 Pain in thoracic spine (principal); K21.9 Gastro-esophageal reflux disease without esophagitis; M81.0 Age-related osteoporosis without current pathological fracture; E78.5 Hyperlipidemia, unspecified; E11.9 Type 2 diabetes mellitus without complications; I10 Essential (primary) hypertension; G51.0 Bell's palsy; Z86.73 Personal history of transient ischemic attack (TIA), and cerebral infarction without residual deficits; F41.9 Anxiety disorder, unspecified; F31.9 Bipolar disorder, unspecified; F17.210 Nicotine dependence, cigarettes, uncomplicated
CPT/HCPCS: 96372; J1885; J8540

== ENCOUNTER 2018-07-22 08:10 | Outpatient (CLI) | payer MEDICARE, MEDICAID ==
--- NOTE | 2018-07-22 12:13 | MRI ---
MRI THORACIC SPINE WITHOUT CONTRAST: HISTORY: Radiculopathy. 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 COMPARISON: None. CORRELATION: Cervical spine MRI . TECHNIQUE: Thoracic spine MRI is performed without Gadolinium administration. Multisequential, multiplanar imag ing is performed. FINDINGS: Appropriate T1 marrow signal intensity of the thoracic vertebrae. Thoracic spine vertebral body heig ht is maintained. No fracture. No significant STIR hyperintensity to suggest vertebral body edema o r ligamentous injury. Visualized mediastinum, lung parenchyma, and solid organs are unremarkable. Conus medullaris terminates at the lower aspect of T12. There is evidence of a central T2 hyperinten sity throughout the majority of the majority of the thoracic cord, compatible with syringohydromyelia . There does not appear to be any cord expansion. T5-T6: Small right paracentral disk that deforms the thecal sac and deforms the right hemicord. Mil d to moderate central canal stenosis. T7-T8: Generalized disk bulge with mild mass effect upon the thecal sac. No significant central can al stenosis. T8-T9: Central/right paracentral disk that deforms the thecal sac. Mild to moderate central canal s tenosis. There is mass effect upon the right hemicord. T9-T10: Mild effacement of the ventral subarachnoid space due to disk material. T11-T12: Mild effacement of the ventral subarachnoid space due to disk material. IMPRESSION: 1. 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 The greatest degree of mass effect is at T5-T6 and T8-T9. There is mass effect upon the right hemicord due to disk material. Nevertheless , no cord signal abnormality. 2. Central T2 hyperintense lesion most compatible with syringohydromyelia. The underlying intrame dullary lesion cannot be completely excluded. Postcontrast imaging is recommended. Note, when the p ostcontrast images of the thoracic aorta are performed, the cervical spine can also be performed at t hat time. POS: [facility]
== END 2018-07-22 08:11 | disposition home or self-care (01) ==
LOC: BICMRI 08:10
PROVIDERS: ATTEND Specialist
DX: M51.14 Intervertebral disc disorders with radiculopathy, thoracic region (principal); G95.9 Disease of spinal cord, unspecified
CPT/HCPCS: 72146; J1030; S0020

== ENCOUNTER 2018-07-26 09:05 | Outpatient (CLI) | payer MEDICARE, MEDICAID | END 2018-07-26 09:06 | disposition home or self-care (01) | LOC: BICMAMMO 09:05 | PROVIDERS: ATTEND Family Medicine | DX: C50.919 Malignant neoplasm of unspecified site of unspecified female breast (principal); Z80.3 Family history of malignant neoplasm of breast | CPT/HCPCS: 77066; G0279 ==

== ENCOUNTER 2018-07-31 07:27 | Outpatient (CLI) | payer MEDICARE, MEDICAID ==
--- NOTE | 2018-07-31 10:55 | MRI ---
MRI CERVICAL SPINE WITH CONTRAST: Comparison: 07-09-18 MRI cervical spine without contrast. History: Syringohydromyelia. Evaluate for possible enhancing lesion in the cord. FINDINGS: Appropriate T1 marrow signal intensity cervical vertebra. Stable straightening of cervical lordosis. Visualized brain parenchyma does not have any abnormal enhancement. There is no evidence of abnormal enhancement throughout the entire cervical cord, visualized upper thoracic cord, and the cervicomedul portillo junction. No cord expansion. No enhancing lesions. There is T1 hypointensity associated with the syrinx in the distal cervical and upper thoracic spine. Stable mild degenerative changes of the cervical spine. IMPRESSION: No abnormal enhancement associated with the syringohydromyelia noted in the distal cervical and upper thoracic spine. POS: [facility]
[2018-07-31] MEDS ORDERED: Gadobenate Dimeglumine 529 MG/1 ML (20ML VIAL) ONE (12:54)
== END 2018-07-31 07:28 | disposition home or self-care (01) ==
LOC: BICMRI 07:27
PROVIDERS: ATTEND Specialist
DX: G95.0 Syringomyelia and syringobulbia (principal)
CPT/HCPCS: 72142; 82565; A9579

== ENCOUNTER 2018-08-29 10:15 | Outpatient (CLI) | payer MEDICARE, MEDICAID ==
--- NOTE | 2018-08-29 12:29 | RAD ---
LUMBAR SPINE 3 VIEWS: Date: 08/29/18 HISTORY: 53-year-old female with history of low back pain and radicular pain, possible pinched nerves. M54.2, M54.5. Exam includes neutral, flexion, and extension standing views of the lumbar spine in the lateral proje ction. FINDINGS: Minimal disc osteophytosis changes with some facet arthrosis. No acute fracture or dislocation. IMPRESSION: Lumbar spondylosis. No abnormal translation between flexion and extension. POS: [facility]
--- NOTE | 2018-08-29 12:30 | RAD ---
THREE VIEWS CERVICAL SPINE: DATE: 08/29/2018. HISTORY: Possible pinched nerves. Radiculopathy. FINDINGS: A neutral lateral radiograph demonstrates anterolisthesis of C2 on C3 measuring approximately 2 mm. There is moderate degenerative change at the atlantoaxial interspace. Upon flexion, anterolisthesis at C2-3 measures approximately 2-3 mm. The anterolisthesis of C2 on C3 is no longer visualized on ex tension. IMPRESSION: Mild anterolisthesis of C2 on C3. POS: [facility]
== END 2018-08-29 10:16 | disposition home or self-care (01) ==
LOC: TBSIIMAG 10:15
PROVIDERS: ATTEND Neurological Surgery
DX: M54.2 Cervicalgia (principal); M54.5 Low back pain; M43.12 Spondylolisthesis, cervical region; M47.816 Spondylosis without myelopathy or radiculopathy, lumbar region
CPT/HCPCS: 72040; 72100

== ENCOUNTER 2018-10-23 12:20 | Outpatient (CLI) | payer MEDICARE, OTHER ==
--- NOTE | 2018-10-23 16:26 | RAD ---
1 VIEW CHEST: Date: 10/23/18 HISTORY: Bad cough x3 weeks. Bronchitis. COMPARISON: 05/02/15, 03/23/18. FINDINGS: Normal cardiac silhouette. There is diffuse interstitial opacities, likely due to infiltrate. No pleu ral effusion or pneumothorax. No osseous abnormalities. IMPRESSION: Diffuse interstitial opacities due to infiltrate. Continued surveillance to ensure resolution is meli mmended. POS: [facility]
== END 2018-10-23 12:21 | disposition home or self-care (01) ==
LOC: BICRAD 12:20
PROVIDERS: ATTEND Family Medicine
DX: J40 Bronchitis, not specified as acute or chronic (principal); R91.8 Other nonspecific abnormal finding of lung field
CPT/HCPCS: 71045; 71046

== ENCOUNTER 2018-10-24 07:14 | Outpatient (CLI) | payer MEDICARE, MEDICAID ==
--- NOTE | 2018-10-24 10:21 | CT ---
EXAM: NONCONTRAST HEAD CT CT ANGIOGRAM OF THE HEAD WITH 3-D RENDERING HISTORY: Followup aneurysm. COMPARISON: None. TECHNIQUE: CT angiogram of the head is performed in the axial plane. Three-dimensional reformatted images are s ubmitted for interpretation. FINDINGS: NONCONTRAST HEAD CT: No parenchymal hemorrhage. No extraaxial hematoma. No midline shift. Basilar cisterns are patent. Brain volume, age appropriate. Cortical rivera-white matter differentiation is preserved. Ventricles and sulci are patent and symmetric. Calvarium is intact. Adequate aeration of the sinuses and mastoid air cells. Post-contrast head CT does not demonstrate any pathologic enhancement of the brain parenchyma. CT ANGIOGRAM OF THE HEAD: The distal cervical and intracranial internal carotid arteries have essentially symmetric enhancement and luminal diameter. There is mild atherosclerosis involving both cavernous segments and paraclino id segments without significant stenosis. There is prominent contrast in the left and right cavernous sinus with mildly prominent bilateral oph thalmic veins. Correlate for bilateral cavernous carotid fistula. ANTERIOR CIRCULATION: Symmetric enhancement and luminal diameter of the A1 and M1 segments. Proximal A2 segments and MCA b ranches have symmetric enhancement and luminal diameter. POSTERIOR CIRCULATION: Distal cervical and intracranial vertebral arteries have appropriate enhancement and luminal diameter . The left and right PICA artery origins are grossly unremarkable. Both vertebral arteries supply a normal-caliber basilar artery. The left and right P1 segments have symmetric enhancement and lumina l diameter. IMPRESSION: 1. No evidence of aneurysm with regards to the level of the [place]. 2. Prominent enhancement involving both cavernous sinuses with mildly prominent bilateral ophthalmic veins. Correlate for bilateral cavernous carotid fistulas. POS: [facility]
== END 2018-10-24 07:15 | disposition home or self-care (01) ==
LOC: CT 07:14
PROVIDERS: ATTEND Psychiatry & Neurology Neurology
DX: I72.9 Aneurysm of unspecified site (principal)
CPT/HCPCS: 70496

== ENCOUNTER 2018-11-25 07:18 | Outpatient (CLI) | payer MEDICARE, MEDICAID ==
[2018-11-25 11:39] LABS: Hemoglobin 15.2 g/dL (12.0-16.0); Mean Corpuscular HGB CONC 31.5 g/dL (32.0-36.0); Mean Corpuscular Hemoglobin 28.2 pg (27.0-31.0); Mean Corpuscular Volume 89.5 fL (78.0-98.0); Mean Platelet Volume 9.5 fL (7.4-10.4); Platelet Count 207 thou/uL (130-400); RBC Distribution Width 17.2 % (11.5-14.5); Red Blood Cell (RBC) Count 5.39 mill/uL (4.20-5.40); White Blood Cell (WBC) Count 10.4 thou/uL (4.8-10.8)
[2018-11-25 11:52] LABS: Anion Gap 11 mmol/L (10-20); BUN (Urea Nitrogen) 14 mg/dL (9.8-20.1); Calc. Creatinine Clearance 0 mL/min (70-130); Calcium 9.2 mg/dL (7.8-10.44); Carbon Dioxide 28 mmol/L (22-29); Chloride 105 mmol/L (98-107); Estimated GFR-MDRD Greater than 90; Glucose 86 mg/dL (70-105); Potassium 3.9 mmol/L (3.5-5.1); Sodium 140 mmol/L (136-145)
--- NOTE | 2018-11-25 20:22 | EKG ---
Test Reason : Blood Pressure : / mmHG Vent. Rate : 069 BPM Atrial Rate : 069 BPM P-R Int : 128 ms QRS Dur : 084 ms QT Int : 410 ms P-R-T Axes : 060 080 056 degrees QTc Int : 439 ms Normal sinus rhythm Possible Left atrial enlargement Borderline ECG Confirmed by ANGEL MONDRAGON, DR. Delgado ([id number]) on 11/25/2018 8:22:07 PM Referred By: LAITH Confirmed By:DR. Sandy ORTIZ MD
== END 2018-11-25 07:19 | disposition home or self-care (01) ==
LOC: LABBT 07:18
PROVIDERS: ATTEND Neurological Surgery
DX: Z01.818 Encounter for other preprocedural examination (principal); I67.1 Cerebral aneurysm, nonruptured
CPT/HCPCS: 80048; 85027; 93005; 93010

== ENCOUNTER 2018-11-27 05:48 | Day surgery (SDC) | payer MEDICARE, MEDICAID ==
[2018-11-25 10:09] VITALS: BMI 29.5
[2018-11-27] MEDS ORDERED: Heparin 10,000 UNITS/1 ML VIAL ONE (06:28)
--- NOTE | 2018-11-27 09:22 | OP ---
DATE OF PROCEDURE: 11/27/2018 DISH STACKER: Andrés Liu PA-C. INDICATION: Rule out carotid cavernous fistula. PROCEDURE PERFORMED: Bilateral internal carotid artery through angiogram. ANESTHESIA: Local. DESCRIPTION OF PROCEDURE: The patient was brought into the angiogram suite and placed on table in supine position. Both groins were prepped and draped in the usual sterile fashion. 1% lidocaine was used to inject the right groin. Using a 5-Guyanese micropuncture set, a 5-Guyanese sheath was placed using the Seldinger technique. A 5 [place]ese diagnostic catheter was passed over a viavoo guidewire, was used and then selectively catheterize the right internal carotid artery. An AP and lateral angiogram were performed. The catheter was then carefully placed in the left internal carotid artery, where again an AP and lateral angiogram were performed. All catheters were then removed. Hemostasis was maintained through manual compression. The patient was not anticoagulated during the procedure. IMPRESSION: The patient underwent successful 2-vessel angiography of the internal carotid artery on the left and the internal carotid artery on the right. Neither reveal evidence for carotid cavernous fistula. Neither reveal evidence for any concerning vascular malformation. Job ID: [id number]
[2018-11-27] MEDS ORDERED: Iopamidol 370 76% 50 ML VIAL FS ONE (10:58)
== END 2018-11-27 10:10 | disposition home or self-care (01) ==
LOC: CCL 05:48
PROVIDERS: ATTEND Neurological Surgery
PROC: 03HY32Z Insertion of Monitoring Device into Upper Artery, Percutaneous Approach (ICD-10-PCS; principal; 2018-11-27)
DX: I67.1 Cerebral aneurysm, nonruptured (principal); F32.9 Major depressive disorder, single episode, unspecified; I10 Essential (primary) hypertension; E11.9 Type 2 diabetes mellitus without complications; M81.0 Age-related osteoporosis without current pathological fracture; E78.5 Hyperlipidemia, unspecified; G43.909 Migraine, unspecified, not intractable, without status migrainosus; F17.210 Nicotine dependence, cigarettes, uncomplicated; Z79.02 Long term (current) use of antithrombotics/antiplatelets; Z79.4 Long term (current) use of insulin; Z79.82 Long term (current) use of aspirin; Z79.899 Other long term (current) drug therapy; Z88.2 Allergy status to sulfonamides; Z91.041 Radiographic dye allergy status
CPT/HCPCS: 36224; 36416; J1644; Q9967

== ENCOUNTER 2018-12-01 13:58 | Emergency (ER) | payer MEDICARE, MEDICAID ==
--- NOTE | 2018-12-01 15:15 | RAD ---
RIGHT RIBS AND PA CHEST 4 VIEWS: Date: 12/01/18 HISTORY: Fall. FINDINGS: Heart size is borderline in size. Mediastinal structures appear unremarkable. Lungs are clear of any infiltrative process. There are no signs of pneumothorax or evidence for pleural effusion. No rib fra ctures are identified. IMPRESSION: Borderline heart size. No acute process. POS: [facility]
[2018-12-01] MEDS ORDERED: Ketorolac Tromethamine 30 MG/ML VIAL ONE (15:46)
== END 2018-12-01 16:00 | disposition home or self-care (01) ==
LOC: SCSER 13:58
DX: S20.211A Contusion of right front wall of thorax, initial encounter (principal); K21.9 Gastro-esophageal reflux disease without esophagitis; E78.5 Hyperlipidemia, unspecified; E11.9 Type 2 diabetes mellitus without complications; I10 Essential (primary) hypertension; G51.0 Bell's palsy; F17.210 Nicotine dependence, cigarettes, uncomplicated; Z86.73 Personal history of transient ischemic attack (TIA), and cerebral infarction without residual deficits; W19.XXXA Unspecified fall, initial encounter
CPT/HCPCS: 96372; J1885